=== PATIENT | male | born 1930 ===

== ENCOUNTER 2016-12-01 20:27 | Emergency (ER) | payer OTHER ==
[~2016-12-01] VITALS: Ht 172.7 cm; Wt 62.0 kg
[2016-12-01 20:30] VITALS: Ht 172.7 cm; Wt 62.0 kg
[2016-12-01] MEDS ORDERED: ACET325T40 PO (21:04)
[2016-12-01] MEDS ORDERED: LACT10SO5 PO (21:05)
[2016-12-01] MEDS ORDERED: ONDA4TAB95 PO (21:06)
[2016-12-01] MEDS ORDERED: DILT60TA29 PO (21:10)
[2016-12-01] MEDS ORDERED: DOCU250C58 PO (21:11)
[2016-12-01] MEDS ORDERED: GABA100C14 PO (21:13)
[2016-12-01] MEDS ORDERED: CALC-277 PO (21:13)
[2016-12-01] MEDS ORDERED: OMEP20CA16 PO (21:14)
[2016-12-01] MEDS ORDERED: CHOL20002 PO (21:15)
[2016-12-01] MEDS ORDERED: SENN-53 PO (21:15)
[2016-12-01] MEDS ORDERED: ASPI-664 PO (21:16)
[2016-12-01] MEDS ORDERED: MULTI PO (21:16)
[2016-12-01] MEDS ORDERED: GABA300C16 PO (21:17)
[2016-12-01] MEDS ORDERED: OMEG1CAP90 PO (21:18)
[2016-12-01] MEDS ORDERED: ALEN70TA30 PO (21:22)
[2016-12-01] MEDS ORDERED: ATOR10TA65 PO (21:23)
[2016-12-01] MEDS ORDERED: BICA50TA4 PO (21:23)
[2016-12-01] MEDS ORDERED: SERT25TA83 PO (21:24)
[2016-12-01] MEDS ORDERED: ATEN100T PO (21:24)
[2016-12-01] MEDS ORDERED: DIGO125T PO (21:24)
[2016-12-01] MEDS ORDERED: HYDR-3498 PO (21:27)
--- NOTE | 2016-12-01 23:41 | ERA ---
ER Documentation Chief Complaint Date/Time DATE: 12/01/16 TIME: 23:41 Chief Complaint Bloody urine for 2 days HPI The patient is a 86-year-old male, presenting to the ER because of bloody urine. He was initially evaluated by Dr. Christianson; however he asked me to take over the patient at 11:[address] Christianson has ordered for urinalysis, however the nurses have been unsuccessful to insert a Storey catheter. I was asked to see the patient because he was under acute respiratory distress. On my evaluation he is tachypneic, wheezing bilaterally. He is unable to provide much history. The history is obtained from the record from the facility. He is a very poor historian, denies smoking, drinking. Past medical history: Dyslipidemia, hypertension, depression, anemia, atrial fibrillation, chronic low back pain, history of prostate CA Past surgical history: Appendectomy ROS All systems reviewed and are negative except as per history of present illness. Medications Home Meds Reported Medications Hydrocodone Bit-Acetaminophen (Hydrocodone Bit-APAP) 5-325MG Tablet, 1 TAB PO QHS Y for PAIN, TAB 12/01/16 Sertraline Hcl* (Sertraline Hcl*) 25 Mg Tablet, 25 MG PO DAILY, #30 TAB 12/01/16 Digoxin* (Digitek*) 125 Mcg Tablet, 0.125 MG PO DAILY, TAB 12/01/16 Atenolol* (Atenolol*) 100 Mg Tablet, 100 MG PO DAILY, #30 TAB 12/01/16 Bicalutamide* (Bicalutamide*) 50 Mg Tablet, 50 MG PO DAILY, TAB 12/01/16 Atorvastatin Calcium (Atorvastatin Calcium) 10 Mg Tablet, 10 MG PO QHS, #30 TAB 12/01/16 Alendronate Sodium* (Fosamax*) 70 Mg Tablet, 70 MG PO Q7D, #4 TAB 12/01/16 [place]-3 Fatty Acids/Fish Oil ([place] 3 1,000 mg Softgel) 1 Each Capsule, 2 EACH PO DAILY, CAP 12/01/16 Gabapentin* (Gabapentin*) 300 Mg Capsule, 300 MG PO QHS, #30 CAP 12/01/16 Aspirin* (Aspirin* EC) 81 Mg Tablet., 81 MG PO DAILY, TAB 12/01/16 Multivitamins* (Theragran*) 1 Tab Tab, 1 TAB PO DAILY, TAB 12/01/16 Cholecalciferol (Vitamin D3) (Vitamin D-3) 2,000 Unit Tablet, 2000 UNIT PO DAILY , TAB 12/01/16 Sennosides* (Senna Lax*) 8.6 Mg Tablet, 1 TAB PO QHS, TAB 12/01/16 Omeprazole* (Omeprazole*) 20 Mg Capsule.dr, 40 MG PO DAILY, #30 CAP 12/01/16 Calcium Carbonate/Vitamin D3 (OYSTER SHELL 500 MG + VIT D TB) 1 Each Tablet, 1 EACH PO BID, TAB 12/01/16 Gabapentin* (Gabapentin*) 100 Mg Capsule, 100 MG PO BID, #90 CAP 12/01/16 Docusate Sodium* (Colace*) 250 Mg Capsule, 250 MG PO BID, #60 CAP 12/01/16 Diltiazem Hcl* (Cardizem*) 60 Mg Tablet, 90 MG PO BID, #90 TAB TAKE AT 9AM AND 9PM 12/01/16 Diltiazem Hcl* (Cardizem*) 60 Mg Tablet, 60 MG PO BID, #60 TAB TAKE AT 1PM AND 5PM 12/01/16 Ondansetron Hcl* (Ondansetron Hcl*) 4 Mg Tablet, 4 MG PO Q6 Y for NAUSEA AND OR VOMITING, TAB 12/01/16 Lactulose* (Lactulose*) 10 Gm/15 Ml Solution, 30 ML PO TID, ML 12/01/16 Acetaminophen (MAPAP) 325 Mg Tablet, 650 MG PO Q6 Y for PRN, TAB 12/01/16 Allergies Allergies: Coded Allergies: No Known Allergy (Unverified , 12/01/16) PMhx/Soc History of Surgery: Yes (appendectomy) Anesthesia Reaction: No Hx Cardiac Disorders: Yes (high cholesterol, HTN) Hx Psychiatric Problems: Yes (depression) Hx Alcohol Use: No Hx Substance Use: No Hx Tobacco Use: No Smoking Status: Former smoker Physical Exam Vitals Vital Signs Date Time Temp Pulse Resp B/P Pulse Ox O2 Delivery O2 Flow Rate FiO2 12/02/16 02:30 98.5 70 19 121/53 96 Nasal Cannula 6.0 12/02/16 01:00 74 26 119/60 95 High Flow 12/02/16 00:00 65 26 94 35 12/02/16 00:00 94 4.0 35 12/01/16 23:50 79 26 119/68 79 Room Air 12/01/16 20:30 98.1 52 18 123/62 89 Physical Exam Const: No acute distress. Unkempt Head: Atraumatic. Eyes: Normal Conjunctiva. ENT: Normal External Ears, Nose and Mouth. Neck: Full range of motion. No meningismus. Resp: Tachypneic, bilateral expiratory wheezes Cardio: Regular rate and rhythm, no murmurs. Abd: Soft, non distended, normal bowel sounds, non tender. Skin: No petechiae or rashes. Back: No midline or flank tenderness. Ext: No cyanosis, or edema. Neur: Awake and alert. No focal deficit. Limited due to his condition Psych: Limited due to his condition Result Diagram: 12/02/16 0010 12/02/16 0010 Results 24 hrs Laboratory Tests Test 12/02/16 00:10 12/02/16 02:30 12/02/16 02:49 Activated Partial Thromboplast Time 27.6Sec Alanine Aminotransferase (ALT/SGPT) 21IU/L Albumin 3.9g/dl Albumin/Globulin Ratio 0.86 Alkaline Phosphatase 87IU/L Anion Gap 20 Aspartate Amino Transf (AST/SGOT) 51IU/L Basophils # 0.010^3/ul Basophils % 0.2% Blood Urea Nitrogen 36mg/dl Calcium Level 9.4mg/dl Carbon Dioxide Level 24mmol/L Chloride Level 103mmol/L Creatinine 0.79mg/dl Digoxin Level 0.8ng/ml Direct Bilirubin 0.00mg/dl Eosinophils # 0.010^3/ul Eosinophils % 0.1% Globulin 4.50g/dl Glucose Level 131mg/dl Hematocrit 34.2% Hemoglobin 11.4g/dl INR International Normalized Ratio 1.22 Indirect Bilirubin 0.9mg/dl Lactic Acid Level 4.9mmol/L Lymphocytes # 0.510^3/ul Lymphocytes % 3.7% Mean Corpuscular Hemoglobin 33.2pg Mean Corpuscular Hemoglobin Concent 33.3g/dl Mean Corpuscular Volume 99.7fl Mean Platelet Volume 14.3fl Monocytes # 0.110^3/ul Monocytes % 0.4% Neutrophils # 12.510^3/ul Neutrophils % 95.3% Nucleated Red Blood Cells # 0.010^3/ul Nucleated Red Blood Cells % 0.0/100WBC Platelet Count 10862^3/UL Potassium Level 4.1mmol/L Prothrombin Time 15.5Sec Prothrombin Time Ratio 1.2 Red Blood Count 3.4310^6/ul Red Cell Distribution Width 13.1% Sodium Level 143mmol/L Total Bilirubin 0.9mg/dl Total Protein 8.4g/dl Troponin I 0.022ng/ml White Blood Count 13.110^3/ul Arterial Blood HCO3 21.6mmol/L Arterial Blood Base Excess -1.2mmol/L Arterial Blood Oxygen Saturation 94.1mmHG Donte Test ACCEPTAB Arterial Blood Gas Puncture Site Right Radial Arterial Blood Carboxyhemoglobin 0.6% Arterial Blood Date Drawn 12/02/2016 2:41:05 AM Arterial Blood Methemoglobin 0.2% Arterial Blood pCO2 (Temp correct) 30.5mmhg Arterial Blood pH (Temp corrected) 7.468 Arterial Blood pO2 (Temp corrected) 66.7mmHG Blood Gas A-a O2 Differential 176.2mmHg Blood Gas Modality NASAL CANNULA Blood Gas Notified Time 12/02/2016 2:45:31 AM Blood Gas Notified Whom BR Blood Gas Specimen Source Blood arterial Blood Gas Temperature 37.0C FiO2 39.0% Oxyhemoglobin Percent 93.3% Total Hemoglobin 12.8g/dl Bedside Urine Blood 3+ Bedside Urine Glucose (UA) Negative Bedside Urine Ketones (LAB) Negative Bedside Urine Leukocyte Esterase (L 3+ Bedside Urine Nitrite (LAB) Positive Bedside Urine Protein (LAB) 3+ Bedside Urine pH (LAB) >=9.0 Current Medications Medications (Trade) Dose Ordered Sig/Edgar Route PRN Reason Start Time Stop Time Status Last Admin Dose Admin Levalbuterol (Xopenex Neb) 3.75 mg ONCE STAT INH 12/01/16 23:48 12/01/16 23:50 DC 12/02/16 00:05 Ipratropium [place] 1.5 mg 1.5 mg ONCE STAT INH 12/01/16 23:48 12/01/16 23:50 DC 12/02/16 00:05 Sodium Chloride 1,920 ml @ 1,920 mls/hr BOLUS X1 ONCE IV 12/02/16 01:30 12/02/16 02:29 DC 12/02/16 02:42 Vancomycin HCl 250 ml @ 125 mls/hr ONCE IVPB 12/02/16 01:30 12/02/16 03:29 Cefepime HCl (Maxipime 1gm/50 ml (Pmx)) 50 ml @ 100 mls/hr ONCE ONCE IVPB 12/02/16 01:30 12/02/16 01:59 DC 12/02/16 02:42 Methylprednisolone Sodium Succinate (Solu-Medrol) 125 mg ONCE ONCE IV 12/02/16 03:03 12/02/16 03:04 DC Procedures/MDM EKG: Read by emergency physician Rate/Rhythm: Normal Sinus Rhythm 68 beats per min QRS, ST, T-waves: No ST elevation, no T wave inversion, first-degree AV block , right axis deviation Impression: Abnormal EKG [place] [id number] Radiology Main Line: [phone] DIAGNOSTIC IMAGING REPORT Patient: YOSVANY BELTRAN : 1930 Age: 86 Sex: M MR #: [id number] DOS: 12/01/16 2350 Ordering MD: JUS ALDANA MD Location: [facility] Room/Bed: PROCEDURE: XR Chest. CLINICAL INDICATION: Possible Sepsis TECHNIQUE: Single frontal view of the chest was obtained. COMPARISON: None. FINDINGS: The cardiomediastinal silhouette is moderately enlarged. There is prominent aortic calcification. There is a small moderate right pleural effusion. There is hazy opacification in the right lower lung and possible elevation of the right hemidiaphragm. There is an appearance of mass-like pleural thickening at the left apex, measuring up to 3.5 by 4.1 cm.. There is no pneumothorax. The osseous structures and soft tissues are unremarkable. IMPRESSION: 1. Moderate cardiomegaly. 2. Moderate right pleural effusion. Right base atelectasis, versus infiltrate. 3. Mass-like pleural thickening at the left lung apex, 3.[address] examination recommended if this is not previously assessed. 4. Prominent aortic calcification. RPTAT: HBST .Stalin Faust MD, MD Date Time Electronically viewed and signed by .Stalin Faust MD, MD on 12/02/2016 01:06 .T/ CC: JUS ALDANA MD MEDICAL MAKING DECISION: The patient is 86-year-old male, presenting with acute respiratory failure, acute septic shock, acute cystitis, acute dehydration, acute hematuria, acute right pleural effusion, left apex pleural thickening. He was treated with Xopenex 3.75 mg and Atrovent 1.5 mg continuous nebulizer over one hour and Solu-Medrol 125 mg IV for wheezing with good response. She was treated with normal saline 30 mL/kg IV, vancomycin IV, Maxipime IV. ABG on 6 L, pH 7.46, PCO2 30, PO2 67. The differential diagnoses considered include but are not limited to asthma, COPD, pneumonia, pulmonary embolus, pleural effusion, congestive heart failure, malignancy. Admit MDM: Patient's infectious symptoms have not stabilized and the patient is at risk of rapid decompensation. The patient will be admitted for careful hydration, antibiotic therapy, and infectious source control. Severe Sepsis criteria: Infectious source: Pneumonia End organ damage indicated by: Lactate > 2.0 mmol/L Acute Resp Failure (sat < 92% w/o oxygen) Sepsis Management: Time of recognition of severe sepsis/septic shock:11:40 PM Within 3 hours of recognition: Blood cultures x 2 before broad-spectrum antibiotics: Yes 30 ml/kg NS bolus completed Initial lactate 4.9 Repeat lactate pending Critical Care: Critical care time 35 minutes Emergent fluid management while maintaining close respiratory support. Provision of immediate and broad-spectrum antibiotic therapy. Simultaneous assessment for possible sources in order to direct targeted therapy. Consideration for invasive and chemical support to prevent cardiopulmonary collapse. Septic Shock Assessment: Any lactic acid > 4.0 yes Persistent hypotension (SBP < 90 or 40 mmHg drop, MAP < 65) despite 30 mL/kg IV fluid bolusno Volume Re-assessment for Septic Shock (post 30 ml/kg bolus): Temp98.5, BP121/89, HR68, RR19, Pox 94% on 6L Heart regular rate & rhythm Lungs no crackles Skin Warm & dry & pink Cap Refill less than 2 seconds Peripheral pulses radially present Persistent Hypotension Treatment: Comfort care no Central line not indicated Vasopressor started None I considered further perfusion assessment with CVP measurement, SCVO2, bedside ultrasound volume assessment, passive leg raise, trial of further fluid bolus. And proceeded withIV fluid Departure Diagnosis: Primary Impression: Acute respiratory failure with hypoxemia Additional Impressions: Septic shock Pneumonia Dehydration Hematuria Cystitis Pleural effusion, right Anemia Thrombocytopenia Condition: Stable Comments I discussed the findings with the patient. I discussed the patient with his physician Dr. Randle at 3:10 AM from [facility], who was made aware of the lab, the treatment, the patient condition. The patient is transferred via ambulance to [facility] JUS ALDANA MD Dec 01, 2016 23:41
[2016-12-01] MEDS ORDERED: LEVALBUTEROL (NEB) 1.25 MG/0.5 ML AMP INH STA (23:48)
[2016-12-01] MEDS ORDERED: IPRATROPIUM (NEB) 0.5 MG/2.5 ML AMP INH STA (23:48)
[2016-12-02 00:49] LABS: ALBUMIN 3.9 g/dl (3.3-4.9)
[2016-12-02 00:50] LABS: POTASSIUM 4.1 mmol/L (3.5-5.1)
[2016-12-02 00:51] LABS: INR 1.22; PROTIME 15.5 Sec (12.2-14.2); PT RATIO 1.2
[2016-12-02 00:52] LABS: ALBUMIN/GLOBULIN RATIO 0.86; BILIRUBIN,INDIRECT 0.9 mg/dl (0-1.1); BILIRUBIN,TOTAL 0.9 mg/dl (0.2-1.3); CREATININE 0.79 mg/dl (0.61-1.24); PARTIAL THROMBOPLASTIN TIME 27.6 Sec (25.0-35.0); TOTAL PROTEIN 8.4 g/dl (6.1-8.1)
[2016-12-02 00:53] LABS: CALCIUM 9.4 mg/dl (8.4-10.2)
[2016-12-02 00:59] LABS: HEMATOCRIT 34.2 % (42.0-52.0); HEMOGLOBIN 11.4 g/dl (14.0-18.0); MEAN CORPUSCULAR HEMOGLOBIN 33.2 pg (29.0-33.0); MEAN CORPUSCULAR HGB CONC 33.3 g/dl (32.0-37.0); MEAN CORPUSCULAR VOLUME 99.7 fl (82.0-101.0); PLATELET COUNT 117 10^3/UL (140-440); RED BLOOD COUNT 3.43 10^6/ul (4.70-6.10); RED CELL DISTRIBUTION WIDTH 13.1 % (11.5-14.5); UNCORRECTED WBC 13.1 10^3/ul (4.8-10.8); WHITE BLOOD COUNT 13.1 10^3/ul (4.8-10.8)
[2016-12-02 01:00] LABS: BASOPHILS % 0.2 % (0.0-2.0); EOSINOPHILS % 0.1 % (0.0-7.0); LYMPHOCYTES # 0.5 10^3/ul (0.8-2.9); LYMPHOCYTES % 3.7 % (15.0-51.0); MEAN PLATELET VOLUME 14.3 fl (7.4-10.4); MONOCYTE # 0.1 10^3/ul (0.3-0.9); MONOCYTES % 0.4 % (0.0-11.0); NEUTROPHIL # 12.5 10^3/ul (1.6-7.5); NEUTROPHILS % 95.3 % (39.0-77.0)
[2016-12-02 01:04] LABS: TROPONIN-I 0.022 ng/ml (0.00-0.12)
--- NOTE | 2016-12-02 01:07 | RADRPT ---
PROCEDURE: XR Chest. CLINICAL INDICATION: Possible Sepsis TECHNIQUE: Single frontal view of the chest was obtained. COMPARISON: None. FINDINGS: The cardiomediastinal silhouette is moderately enlarged. There is prominent aortic calcification. There is a small moderate right pleural effusion. There is hazy opacification in the right lower melly ng and possible elevation of the right hemidiaphragm. There is an appearance of mass-like pleural t hickening at the left apex, measuring up to 3.5 by 4.1 cm.. There is no pneumothorax. The osseous structures and soft tissues are unremarkable. IMPRESSION: 1. Moderate cardiomegaly. 2. Moderate right pleural effusion. Right base atelectasis, versus infiltrate. 3. Mass-like pleural thickening at the left lung apex, 3.[address] examination recommended if this is not previously assessed. 4. Prominent aortic calcification. RPTAT: HBST .Stalin Faust MD, MD Date Time Electronically viewed and signed by .Stalin Faust MD, on 12/02/2016 01:06 .T/
[2016-12-02] MEDS ORDERED: SOD CHLORIDE 0.9% 1,920 ML IV ONE (01:30)
[2016-12-02] MEDS ORDERED: CEFEPIME 1GM/50 ML (PMX) 50 ML IVPB ONE (01:30)
[2016-12-02] MEDS ORDERED: VANCOMYCIN 1 GM (PMX) 250 ML IVPB SCH (01:30)
[2016-12-02 02:45] LABS: AADO2 Arterial 176.2 mmHg (7.0-24.0); Allen Test ACCEPTAB; Arterial Base Excess -1.2 mmol/L (-3.0-3); Arterial COHb 0.6 % (0.0-3.0); Arterial Fraction of Oxyhgb 93.3 % (93.0-99.0); Arterial HCO3 21.6 mmol/L (22.0-26.0); Arterial MetHb 0.2 % (0.0-1.5); Arterial Total Hemglobin 12.8 g/dl (12.0-18.0); MODE NASAL CANNULA
[2016-12-02 02:48] LABS: URINE BLOOD (Dip) POC 3+ (NEGATIVE)
[2016-12-02] MEDS ORDERED: METHYLPREDNISOLONE 125 MG INJ IV ONE (03:03)
[2016-12-02 03:25] LABS: ADD UMIC YES; URINE BILIRUBIN (Dip) NEGATIVE (NEGATIVE); URINE BLOOD (Dip) 3+ (NEGATIVE); URINE COLOR DK. YELLOW (YELLOW); URINE GLUCOSE (Dip) NEGATIVE (NEGATIVE); URINE KETONES (Dip) NEGATIVE (NEGATIVE); URINE LEUKOCYTE ESTERASE (Dip) 3+ (NEGATIVE); URINE NITRITE (Dip) POSITIVE (NEGATIVE); URINE TOTAL PROTEIN (Dip) 2+ (NEGATIVE); URINE UROBILINOGEN (Dip) 0.2 E.U./dL (0.1-1.0)
[2016-12-02 03:59] LABS: BACTERIA,URINE MANY; URINE RBCS 25-50 /HPF (0)
[2016-12-02 04:00] LABS: SQUAMOUS EPITHELIAL CELL,UR RARE
[2016-12-02 04:25] VITALS: BP 135/55; PULSE 74; RESP 19; TEMP 98
== END 2016-12-02 04:56 | disposition short-term general hospital (02) ==
LOC: E/R 20:27
DX: J96.01 Acute respiratory failure with hypoxia (principal); R65.21 Severe sepsis with septic shock; A41.9 Sepsis, unspecified organism; J18.9 Pneumonia, unspecified organism; E86.0 Dehydration; N30.91 Cystitis, unspecified with hematuria; J90 Pleural effusion, not elsewhere classified; D64.9 Anemia, unspecified; D69.6 Thrombocytopenia, unspecified; I10 Essential (primary) hypertension; Z85.46 Personal history of malignant neoplasm of prostate; Z79.82 Long term (current) use of aspirin; Z87.891 Personal history of nicotine dependence
CPT/HCPCS: 36415; 36600; 71010; 80053; 80162; 81001; 82803; 83605; 84484; 85025; 85610; 85730; 87040; 87086; 93005; 94644; 96374; 96375; 99291; J0692; J2930; J3370; J7030; P9612; 81003; 94664